=== PATIENT | male | born 1965 | race Caucasian/White ===

== ENCOUNTER 2024-08-03 11:28 | Emergency (ER) | payer OTHER ==
[~2024-08-03] VITALS: Ht 165.1 cm; Wt 60.0 kg
[2024-08-03 11:33] VITALS: O2SAT 97
[2024-08-03] MEDS: KETOROLAC 15MG/ML VIAL IM ONE (12:08)
[2024-08-03] MEDS ORDERED: LIDO700A15 TP (13:08)
[2024-08-03] MEDS ORDERED: NAPR-1176 MT (13:08)
[2024-08-03 13:17] VITALS: BP 148/97; PULSE 76; RESP 16; TEMP 36.66960; O2SAT 99
== END 2024-08-03 13:26 | disposition home or self-care (01) ==
LOC: ER 11:28
DX: M54.9 Dorsalgia, unspecified (principal); M54.2 Cervicalgia
CPT/HCPCS: 99283; 72040; 96372; J1885